=== PATIENT | male | born 1955 | race African-American/Black ===

== ENCOUNTER 2019-10-30 07:46 | Emergency (ER) | payer MEDICARE ==
[~2019-10-30] VITALS: Ht 172.7 cm; Wt 68.3 kg
[~2019-10-30 07:46] MED LIST: AMLO10TA4 PO; CITA40TA12 PO; QUET100T4 PO; RISP2TAB35 PO
[2019-10-30 07:50] VITALS: BP 153/93
== END 2019-10-30 08:23 | disposition home or self-care (01) ==
LOC: ED 08:15
DX: N40.0 Benign prostatic hyperplasia without lower urinary tract symptoms (principal); Z76.0 Encounter for issue of repeat prescription; Z85.038 Personal history of other malignant neoplasm of large intestine
CPT/HCPCS: 99283

== ENCOUNTER 2019-12-20 09:22 | Emergency (ER) | payer MEDICARE ==
[~2019-12-20] VITALS: Ht 172.7 cm; Wt 67.0 kg
[2019-12-20 09:24] VITALS: BP 131/91
--- NOTE | 2019-12-20 09:34 | NUR ---
PT HERE WITH C/O MEDICATION REFILL, STATES HE NEEDS REFILL OF HIS TAMUSOLIN 0.4MG PO X 1 DAILY.
[2019-12-20] MEDS ORDERED: TAMS-11 PO (09:35)
--- NOTE | 2019-12-20 10:50 | NUR ---
Patient/Caregiver given discharge instructions and they have confirmed that they understand the instructions. Patient ambulatory with steady gait.
== END 2019-12-20 10:52 | disposition home or self-care (01) ==
LOC: ED 10:46
DX: R39.198 Other difficulties with micturition (principal); Z76.0 Encounter for issue of repeat prescription
CPT/HCPCS: 99283; 99284; 99285

== ENCOUNTER 2020-02-17 09:04 | Emergency (ER) | payer MEDICARE ==
[~2020-02-17] VITALS: Ht 172.7 cm; Wt 68.0 kg
[~2020-02-17 09:04] MED LIST changes: +TAMS-11 PO
[2020-02-17 09:09] VITALS: BP 155/96
== END 2020-02-17 10:01 | disposition home or self-care (01) ==
LOC: ED 09:53
DX: N40.0 Benign prostatic hyperplasia without lower urinary tract symptoms (principal); Z76.0 Encounter for issue of repeat prescription
CPT/HCPCS: 99281

== ENCOUNTER 2020-03-19 06:50 | Emergency (ER) | payer MEDICARE ==
[~2020-03-19] VITALS: Ht 172.7 cm; Wt 71.7 kg
[2020-03-19 06:56] VITALS: BP 152/98
--- NOTE | 2020-03-19 07:20 | NUR ---
MD VARGAS AND THEN DISCHARGED
== END 2020-03-19 07:26 | disposition home or self-care (01) ==
LOC: ED 07:24
DX: N40.0 Benign prostatic hyperplasia without lower urinary tract symptoms (principal); Z76.0 Encounter for issue of repeat prescription; Z85.038 Personal history of other malignant neoplasm of large intestine
CPT/HCPCS: 99281; 99283

== ENCOUNTER 2020-04-16 07:32 | Emergency (ER) | payer MEDICARE ==
[~2020-04-16] VITALS: Ht 172.7 cm; Wt 68.3 kg
[2020-04-16 07:34] VITALS: BP 120/84
== END 2020-04-16 08:07 | disposition home or self-care (01) ==
LOC: ED 07:40
DX: N40.0 Benign prostatic hyperplasia without lower urinary tract symptoms (principal); Z85.038 Personal history of other malignant neoplasm of large intestine; Z76.0 Encounter for issue of repeat prescription
CPT/HCPCS: 99281; 99283

== ENCOUNTER 2020-05-22 10:47 | Emergency (ER) | payer MEDICARE ==
[~2020-05-22] VITALS: Ht 172.7 cm; Wt 69.1 kg
[2020-05-22 10:55] VITALS: BP 124/85
--- NOTE | 2020-05-22 11:53 | NUR ---
PT OK FOR D/C PER ERMD. PT GIVEN SCRIPT AND D/C INSTRUCTIONS, VERBALIZED UNDERSTANDING.
== END 2020-05-22 11:55 | disposition home or self-care (01) ==
LOC: ED 11:30
DX: N40.0 Benign prostatic hyperplasia without lower urinary tract symptoms (principal); Z76.0 Encounter for issue of repeat prescription; F17.200 Nicotine dependence, unspecified, uncomplicated
CPT/HCPCS: 99281

== ENCOUNTER 2020-11-15 10:14 | Emergency (ER) | payer OTHER, MEDICAID ==
[~2020-11-15] VITALS: Ht 172.7 cm; Wt 70.9 kg
[2020-11-15 11:52] VITALS: BP 143/89
== END 2020-11-15 11:59 | disposition home or self-care (01) ==
LOC: ED 11:09
DX: J00 Acute nasopharyngitis [common cold] (principal); Z20.822 Contact with and (suspected) exposure to COVID-19; R06.02 Shortness of breath; R50.9 Fever, unspecified; R05 Cough; R09.81 Nasal congestion; M79.10 Myalgia, unspecified site; F17.210 Nicotine dependence, cigarettes, uncomplicated; Z85.038 Personal history of other malignant neoplasm of large intestine
CPT/HCPCS: 71045; 87635; 99282; 99406

== ENCOUNTER 2021-01-06 09:01 | Emergency (ER) | payer MEDICARE, MEDICAID ==
[~2021-01-06] VITALS: Ht 172.7 cm; Wt 72.0 kg
[2021-01-06 09:12] VITALS: BP 134/86
== END 2021-01-06 09:46 | disposition home or self-care (01) ==
LOC: ED 09:40
DX: N40.0 Benign prostatic hyperplasia without lower urinary tract symptoms (principal); Z76.0 Encounter for issue of repeat prescription
CPT/HCPCS: 99281